=== PATIENT | male | born 1990 | race Caucasian/White ===

== ENCOUNTER 2021-07-10 18:09 | Emergency (ER) | payer SELFPAY ==
[~2021-07-10 18:09] MED LIST: NORCO 5-325 TA1 EACH PO; [UNRECOGNIZED DRUG - OTHER] TP
== END 2021-07-10 23:15 | disposition left against medical advice (07) ==
LOC: ER1 18:09
DX: R73.9 Hyperglycemia, unspecified (principal)
CPT/HCPCS: 99281